=== PATIENT | male | born 1965 | race Caucasian/White ===

== ENCOUNTER → 2018-01-08 12:45 | Outpatient (CLI) | payer SELFPAY ==
[2018-01-08 13:02] LABS: International Normalized Ratio 2.8; Prothrombin Time (Protime)PT. 29.5 SECONDS (11.7-14.9)
== END ==
PROVIDERS: Family Provider Internal Medicine; PCP Internal Medicine; Visit Provider Internal Medicine
DX: I48.91 Unspecified atrial fibrillation (principal); R07.89 Other chest pain
CPT/HCPCS: 84484; 85610

== ENCOUNTER 2022-09-24 16:59 | Emergency (ER) | payer OTHER, SELFPAY ==
[2022-09-24 17:00] VITALS: BP 122/89; PULSE 61; RESP 16; TEMP 36.2; O2SAT 97; BMI 29.2
--- NOTE | 2022-09-24 17:30 | EKG12_ITS ---
Test Reason : PALP Blood Pressure : / mmHG Vent. Rate : 063 BPM Atrial Rate : 063 BPM P-R Int : 152 ms QRS Dur : 086 ms QT Int : 410 ms P-R-T Axes : 005 -31 015 degrees QTc Int : 419 ms Sinus rhythm with occasional Premature ventricular complexes Left axis deviation Abnormal ECG Confirmed by NEGRO CARDOZA, JOVI ([id number]), scientific publications editor RENETTA AZUL ([id number]) on 09/26/2022 1:46:44 PM Referred By: Confirmed By:JOVI TOM MD
--- NOTE | 2022-09-24 17:38 | RAD_ITS ---
INDICATION: chest pain EXAMINATION/TECHNIQUE: X-RAY - XR Chest 1 View COMPARISON: None. FINDINGS: LINES/DEVICES: None. LUNGS: No consolidation, edema or effusion. No pneumothorax. MEDIASTINUM AND CARDIOVASCULAR STRUCTURES: Cardiac silhouette not enlarged. Central airways and mediastinal contour are unremarkable. BONES AND SOFT TISSUES: Unremarkable. RAD/Chest 1 View (Portable) IMPRESSION: No radiographic evidence of acute cardiopulmonary disease. Electronically Signed: Maximiliano Belle MD at 17:57 EST ,
[2022-09-24 17:44] LABS: Absolute Lymphocyte Count 1.55 X10^3/uL (0.83-4.51); Absolute Neutrophil Count 3.9 X10^3/uL (2.0-7.7); Basophil# 0.03 X10^3/uL; Basophil% 0.5 % (0-1); Eosinophil# 0.22 X10^3/uL; Eosinophils% 3.6 % (0-5); Hematocrit 41.7 % (40-54); Hemoglobin 14.2 g/dL (13.0-16.5); Lymphocyte # 1.55 X10^3/ul (0.83-4.51); Lymphocyte % 25.6 % (19-41); Mean Corp Hgb Conc 34.1 g/dL (32-36); Mean Corpuscular Hgb 29.5 pg (27.0-32.0); Mean Corpuscular Volume 86.5 fL (80-94); Mean Platelet Vol. 11.4 fl (6.2-12.0); Monocyte# 0.31 X10^3/uL; Monocyte% 5.1 % (0-10); NRBC Flagged by Analyzer 0 % (0-5); Neutrophil # 3.93 X10^3/uL (2.7-7.7); Neutrophil % 64.9 % (47-70); Platelet Count 186 K/mm3 (150-450); RBC Distribution Width CV 12.5 % (11.6-14.6); RBC Distribution Width SD 39.4 fl (35.1-43.9); Red Blood Count 4.82 M/mm3 (4.6-6.2); White Blood Count 6.1 K/mm3 (4.4-11.0)
--- NOTE | 2022-09-24 17:58 | ED.VIS.CHEST ---
HPI History of Present Illness Chief Complaint: Palpitations Informant: patient and spouse/S.O. Onset/Context/Timing Onset: Today Activity at onset: sudden Timing: Intermittent Current Severity: Mild Maximum Severity: Mild Worsened By: Nothing Associated Symptoms: Positive for Dyspnea and Palpitations; Negative for Nausea, Vomiting, Diaphoresis, Cough, Fever, Lightheadedness or Acid Reflux Narrative Narrative: 58-year-old male history of A. fib since 2012. He is cardioverted at that time. Also has had a stroke in the past and a DVT in his leg he is on Coumadin. He is a known patent foramen ovale. Patient's had palpitations last couple weeks. Today had episode of seeing faster and he had some shortness of breath with it. No chest pain. No recent illness. Denies any nausea, vomiting or diarrhea. No fever or chills. No weight change or hair loss. He has had episodes like this before. He was on beta-blockers in the past he did not tolerate those well and they were stopped. Prior Similar Symptoms: Yes Recent Illness/Hospitalization: No CVD Risk Factors: Negative for Hypertension, Diabetes, Hypercholesterolemia or Smoking PE Risk Factors: Positive for Prior DVT or PE; Negative for Recent Travel/Surgery, Recent Immobilization, Cancer or OCP + Smoking + >/=35 TAD Risk Factors: Negative for Marfan's Syndrome or Hypertension [facility] Medical History Afib Stroke due to embolism Home Medications warfarin 1 mg tablet mg 09/24/22 [History Last Taken Unknown] warfarin 5 mg tablet mg 09/24/22 [History Last Taken Unknown] Allergy/AdvReac Type Severity Reaction Status Date / Time No Known Allergies Allergy Verified 09/24/22 17:00 Social History Smoking Status: Never smoker ROS ROS ED ROS Narrative Palpitations. Review of Systems ROS Unobtainable: Denies due to encephalopathy Constitutional Constitutional ED: Denies chills or fever(s) Eyes Eyes: Reports none ENT ENT ED: Denies ear pain Cardiovascular Cardiovascular: Reports as per HPI and palpitations; Denies chest pain Respiratory/Chest Respiratory/Chest: Reports dyspnea; Denies cough Gastrointestinal Gastrointestinal: Denies abdominal pain Genitourinary Genitourinary ED: Denies dysuria or hematuria Musculoskeletal Musculoskeletal: Denies arthralgias Integumentary Denies abscess or Abrasions Neurologic Neurologic: Denies headache(s) Psychiatric Psychiatric: Denies anxiety Endocrine Endocrinology: Denies cold intolerance Hematologic/Lymphatic Hematologic/Lymphatic: Denies easy bleeding Allergic/Immunologic Allergic/Immunologic ED: Denies mouth swelling or tongue swelling EXAM Physical Exam Narrative Exam Narrative: 57-year-old male no acute distress. Vital signs stable afebrile. Pulse ox 97% on room air. Pulse 61 sinus rhythm on the monitor occasional PVCs. H EENT exam normal. Neck nontender. No thyromegaly. Lungs clear to auscultation bilaterally. Heart regular rate and rhythm rate about 60. PVCs. Abdomen soft nontender. Moving all 4 extremities. Calves are nontender without edema or cords. Neurologic exam normal. Awake and alert. No focal motor deficits. Patient clinically looks well. Benign exam. Const Vital Signs: 09/24/22 17:00 09/24/22 18:03 Temperature 97.2 F L Temperature Source Temporal Pulse Rate 61 Respiratory Rate 16 Blood Pressure 122/89 H Blood Pressure Mean 100 Pulse Ox 97 Oxygen Delivery Method Room Air Room Air Positive well nourished and well developed; Negative for obese, cachectic, contractures or unkempt General Appearance ED: well developed and NAD; Negative for unkempt, cachectic, contractures or pallor Nutritional Appearance: Negative for cachectic or obese HEENT Reports moist mucous membranes; Denies dry mucous membranes normocephalic and atraumatic; Negative for trauma or tenderness Mouth ED: No dry mucous membranes Mouth: No dry mucous membranes Eyes PERRL and EOMs intact bilaterally General Eye ED: Negative for pale conjunctiva or scleral icterus Neck no lymphadenopathy, supple and no JVD General: Negative for tenderness Chest Wall inspection of chest normal and palpation of chest normal Resp normal respiratory effort and clear to auscultation bilaterally Effort and Inspection: Negative for respiratory distress Auscultation: Negative for rales, rhonchi or wheezes Cardio regular rate, regular rhythm, S1 normal heart sound, S2 normal heart sound and no murmurs Rate: other Other Details: Occasional PVCs on the monitor ; Negative for bradycardia or tachycardic Rhythm: Negative for abnormal rhythm Peripheral Pulses: pulses 2+ throughout GI normal to inspection, nondistended, normoactive bowel sounds, soft to palpation, non-tender, non-distended and no masses Auscultation: Negative for hyperactive bowel sounds Palpation: Negative for splenomegaly Back/Spine no CVA tenderness and no thoracic nor lumbar tenderness General Back: Negative for CVA tenderness Cervical Spine: Negative for cervical spine tenderness Extremity normal to inspection General Extremety ED: Negative for edema General Extremity: Negative for edema Neuro oriented x3 and CN's II-XII intact bilaterally Sensorium / Orientation: awake, alert, oriented to person, oriented to place and oriented to time; Negative for confused, lethargic or stuporous Motor Exam: strength 5/5 throughout Psych mental status grossly normal Appearance: Negative for unkempt Attitude: No agitated Mood & Affect: Negative for depressed, anxious or tearful Skin no rashes or lesions noted and no wounds General Skin Exam: Negative for jaundice or pallor Rashes: No rashes noted Trauma: Negative for abrasion or laceration MDM MDM MDM Narrative Medical decision making narrative: 57-year-old male history of A. fib. Has been having palpitations last 2 weeks. Today is sinus rhythm with PVCs. Will undergo cardiac work-up. He is on Coumadin level be checked. Exam is benign. I suspect to be a discharged home with outpatient follow-up. Repeat exam patient doing well at 6:24 PM. Work-up is negative. We discussed all his test results both the patient and his . He is not having any chest pain at all did need to repeat troponin. History and exam are consistent with PVCs. He has had a history of A. fib in the past but currently is not in A. fib and has had no signs of A. fib since he has been here. His Coumadin is therapeutic. He will be discharged home with outpatient follow-up with his primary care physician Dr. Kylie Mejia. Lab Data Attestation: I reviewed the patient's lab results. Lab results narrative: CBC shows white count 6. H&H 14 and 41. Platelets 186. Chest x-ray unremarkable. Chemistries normal gap of 5 normal being creatinine. Troponin is 4. Glucose is 100. Patient is on Coumadin and is therapeutic his INR of 2.3. Labs: Laboratory Results - last 24 hr 09/24/22 09/24/22 09/24/22 17:20 17:20 18:02 WBC 6.1 RBC 4.82 Hgb 14.2 Hct 41.7 MCV 86.5 MCH 29.5 MCHC 34.1 RDW Std Deviation 39.4 RDW Coeff of Meño 12.5 Plt Count 186 MPV 11.4 Immature Gran % (Auto) 0.300 Neut % (Auto) 64.9 Lymph % (Auto) 25.6 Patrick % (Auto) 5.1 Eos % (Auto) 3.6 Baso % (Auto) 0.5 Absolute Neuts (auto) 3.9 Absolute Lymphs (auto) 1.55 Nucleated RBC % 0 PT 24.5 H INR 2.3 Sodium 140 Potassium 4.0 Chloride 107 Carbon Dioxide 28.0 Anion Gap 5 BUN 17 Creatinine 0.97 Estim Creat Clear Calc 93.81 Est GFR (MDRD) Af Amer 102 Est GFR (MDRD) Non-Af 84 BUN/Creatinine Ratio 17.5 Glucose 100 Calcium 9.0 Troponin I High Sens 4 Radiography Chest X-Ray - ED: 1 View, Read by ED Physician, Read by Radiologist, Heart, Lungs, Mediastinum, Bony Structures, No Acute Disease and Chronic Changes Diagnostic Testing: Clinical Impression(s) from Imaging Studies Chest X-Ray 09/24/22 17:38 IMPRESSION: No radiographic evidence of acute cardiopulmonary disease. Electronically Signed: Maximiliano Belle MD at 17:57 EST Reading Location ID and State: [facility] / [place] , Service support , Chest x-ray, portable, single view interpreted both by myself and radiologist shows no acute abnormality. Normal cardiac silhouette. Normal mediastinum. No infiltrates. Normal lung kee. Rhythm Strip Rhythm Strip: Sinus Rhythm Rate: 63 Ectopy: None EKG Initial EKG: Attestation: I personally reviewed and interpreted this EKG as follows: Interpretation: Sinus Rhythm and No Acute Injury Pattern Comments: Normal sinus rhythm. Rate is 63. Occasional PVCs. Unchanged from prior EKG from November 2021. Prior: Unchanged Discharge Plan Triage Chief Complaint: Palpitations ED Provider: Socrates Severino Dx/Rx/DC Orders Clinical Impression: Heart palpitations, Premature ventricular contractions (PVCs) (VPCs), History of atrial fibrillation, Chronic anticoagulation Instructions: PVCs, ED Palpitations Prescriptions: No Action warfarin 5 mg tablet warfarin 1 mg tablet Primary Care Provider: Kylie Mejia Referrals: Kylie Mejia MD [Primary Care Provider] - As soon as possible Activity Restrictions/Additional Instructions: Your labs, EKG, chest x-ray are unremarkable. Your INR is therapeutic at 2.3. Your EKG just shows premature beats but no signs of atrial fibrillation. Continue your current meds. Follow-up with your primary care physician. Return if worse. Disposition Disposition: Home, Self Care
[2022-09-24 18:07] LABS: Anion Gap 5 (5-15); BUN 17 mg/dL (7-18); BUN/Creat Ratio 17.5 RATIO (10-20); Chloride 107 mmol/L (98-107); Creatinine, Serum 0.97 mg/dL (0.70-1.30); EST Glomerular Filtration Rate 84 mL/min (>60); Est Glom Filt Rate - Afr Amer 102 mL/min (>60); Estimated Creatinine Clearance 93.81 ml/min; Glucose 100 mg/dL (74-106); Sodium Level 140 mmol/L (136-145); Troponin-I HS (w/2H Reflex) 4 pg/mL (3.0-78.0)
[2022-09-24 18:16] LABS: International Normalized Ratio 2.3; Prothrombin Time (Protime)PT. 24.5 SECONDS (11.7-14.9)
[2022-09-24 18:34] VITALS: BP 110/89; PULSE 62; RESP 14; O2SAT 96
[2022-09-24 19:42] LABS: Reflex Troponin-HS? (from REC) Y
== END 2022-09-24 18:34 | disposition home or self-care (01) ==
PROVIDERS: Emergency Provider Emergency Medicine; PCP Internal Medicine; Visit Provider Emergency Medicine
DX: I49.3 Ventricular premature depolarization (principal); I48.91 Unspecified atrial fibrillation; Z79.01 Long term (current) use of anticoagulants; Z86.73 Personal history of transient ischemic attack (TIA), and cerebral infarction without residual deficits; Z86.718 Personal history of other venous thrombosis and embolism
CPT/HCPCS: 71045; 80048; 84484; 85025; 85610; 93005; 99285; A4216

== ENCOUNTER → 2023-03-01 | Outpatient (CLI) | payer SELFPAY, OTHER ==
--- NOTE | 2023-03-01 07:12 | CT_ITS ---
INDICATION: HYPOXEMIA EXAMINATION: CT CHEST WITHOUT CONTRAST - CT Chest W/O Contrast Injection TECHNIQUE: Helically acquired images were obtained of the chest. A radiation dose optimization technique was used for this scan. IV Contrast dosage and agent: None. COMPARISON: None. FINDINGS: LUNGS, PLEURA AND LARGE AIRWAYS: No masses, consolidation, or edema. No evidence of interstitial fibrosis. No pleural effusion or thickening. No pneumothorax. THYROID: No thyroid lesions. HEART AND PERICARDIUM: Heart size is normal. No pericardial effusion. CORONARY ARTERIES: Coronary artery calcification VESSELS: Thoracic aorta is not dilated. MEDIASTINUM AND WILBERTO: No mediastinal or hilar adenopathy. Esophagus is unremarkable. No hiatal hernia. UPPER ABDOMEN: No acute pathology. BONES: No suspicious lytic or blastic abnormality. CT/Chest without Contrast IMPRESSION: No definite acute or significant abnormality seen. Electronically Signed: Dennis Holley MD at 21:07 EDT ,
== END | disposition home or self-care (01) ==
LOC: CT 07:12
PROVIDERS: PCP Internal Medicine; Referring Provider Internal Medicine Pulmonary Disease; Visit Provider Internal Medicine Pulmonary Disease
DX: R09.02 Hypoxemia (principal)
CPT/HCPCS: 71250

== ENCOUNTER → 2023-04-13 | Outpatient (CLI) | payer SELFPAY, OTHER ==
--- NOTE | 2023-04-13 13:57 | ECHOD_ITS ---
Reason For Study: Hypoxemia Procedure This was a 2D Doppler, Color Flow transthoracic echocardiogram. Exam performed in department. Left Ventricle Normal LV size. Left ventricular systolic function is normal. The estimated ejection fraction is 55 %. Stage 1 diastolic dysfunction. No regional wall motion abnormalities noted. Right Ventricle Normal RV size. Normal systolic function. Tricuspid Valve Normal tricuspid valve. Mild tricuspid valve insufficiency. Pulmonary artery systolic pressure is 15 mmHg. Great Vessels Normal aortic root. The pulmonary is not well visualized. Normal inferior vena cava. Pericardium/Pleural No pericardial effusion. Medication Previous Positive Bubble on Echo and DIMPLE consistent with a PFO. MMode/2D Measurements & Calculations LVIDd: 5.7 cm IVSd: 1.0 cm Ao root diam: 4.0 cm LVIDs: 3.5 cm LVPWd: 1.1 cm LA dimension: 3.9 cm RVDd: 4.1 cm FS: 38.6 % LAV(MOD-bp): 61.9 ml LA A4 area: 19.9 cm2 RA A4 area: 16.4 cm2 LAV(MOD-bp) Indexed: 27.6 ml/m2 LAV(MOD-sp2): 61.9 ml LAV(MOD-sp4): 57.1 ml Time Measurements MV dec time: 0.25 sec Doppler Measurements & Calculations MV E max osmar: 48.3 cm/sec Lat Peak E' Osmar: 11.1 cm/sec Med Peak E' Osmar: 9.2 cm/sec MV A max osmar: 54.7 cm/sec E/E' lat: 4.3 E/E' med: 5.3 MV E/A: 0.88 MV V2 max: 58.7 cm/sec MV P1/2t max osmar: 53.9 cm/sec Ao V2 max: 117.0 cm/sec MV max P.4 mmHg MV P1/2t: 81.1 msec Ao max P.5 mmHg MV V2 mean: 30.9 cm/sec MV dec slope: 194.6 cm/sec2 Ao V2 mean: 83.1 cm/sec MV mean P.46 mmHg Ao mean P.2 mmHg MV V2 VTI: 19.9 cm MVA(P1/2t): 2.7 cm2 Ao V2 VTI: 29.7 cm AV (velocity ratio): 0.74 LV V1 max: 94.6 cm/sec MR max osmar: 289.7 cm/sec PA V2 max: 88.6 cm/sec LV V1 max P.6 mmHg MR max P.6 mmHg PA V2 mean: 51.1 cm/sec LV V1 mean P.0 mmHg LV V1 mean: 65.4 cm/sec LV V1 VTI: 22.1 cm TR max osmar: 171.4 cm/sec TR max P.8 mmHg ECHO/Echo Complete Interpretation Summary Normal LV size. Left ventricular systolic function is normal. The estimated ejection fraction is 55 %. Stage 1 diastolic dysfunction. Mild tricuspid valve insufficiency. Pulmonary artery systolic pressure is 15 mmHg. Ordering Physician: Orville Lopez V Referring Physician: Orville Lopez V Performed By: Praviz De Souza RCS
== END | disposition home or self-care (01) ==
PROVIDERS: PCP Internal Medicine; Referring Provider Internal Medicine Pulmonary Disease; Visit Provider Internal Medicine Pulmonary Disease
DX: I07.1 Rheumatic tricuspid insufficiency (principal); R09.02 Hypoxemia
CPT/HCPCS: 93306

== ENCOUNTER → 2025-04-03 | Outpatient (CLI) | payer SELFPAY, OTHER ==
--- NOTE | 2025-04-03 15:46 | MRI_ITS ---
PROCEDURE: LOWER EXT JOINT ONLY (ROUTINE) 04/03/2025 REASON FOR EXAM: BILATERAL KNEE PAIN TECHNIQUE: T1, T2, PD, LOWER EXT JOINT ONLY (ROUTINE) Multiplanar and multisequence images were obtained without IV contrast administration. COMPARISON: COMPARISON : None FINDINGS: Bone Marrow: Hardware is present consistent with prior ACL graft. Subcortical edema is present in the medial femoral condyle and medial tibial plateau. There is a 0.4 cm corticated osteochondral fragment in the lateral joint space. Cruciate ligaments: Residual ACL graft fibers are visible. There is edema and attenuation in the proximal and middle 3rd of the posterior cruciate, grade 2 sprain. Collateral ligaments: The medial collateral ligament appears intact. The lateral collateral ligament complex appears intact. Extensor mechanism: There is moderate distal quadriceps and distal patellar tendon tendinopathy without tear. Meniscus: There is a horizontal tear in the posterior horn of the lateral meniscus which extends to the tibial surface. There is a blunted appearance of the body of the medial meniscus which may be postsurgical, with a horizontal tear of the posterior horn extending to the femoral surface. Effusion: There is a moderate joint effusion. Plica are noted in the superior joint space. There is no significant Owen's cyst. 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 MRI/Lower Ext Joint Only (Routine) IMPRESSION: Hardware is present consistent with prior ACL graft. Subcortical edema is present in the medial femoral condyle and medial tibial pl ateau. There is a 0.4 cm corticated osteochondral fragment in the lateral joint space. Residual ACL graft fibers are visible. There is edema and attenuation in the proximal and middle 3rd of the posterior cruciate, grade 2 sprain. There is moderate distal quadriceps and distal patellar tendon tendinopathy wit hout tear. There is a horizontal tear in the posterior horn of the lateral meniscus which extends to the tibial surface. There is a blunted appearance of the body of the medial meniscus which may be p ostsurgical, with a horizontal tear of the posterior horn extending to the femoral surface. There is a moderate joint effusion. Plica are noted in the superior joint space. 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 Reading Location: [facility]
== END | disposition home or self-care (01) ==
LOC: MRI 15:44
PROVIDERS: PCP Internal Medicine; Referring Provider Internal Medicine; Visit Provider Internal Medicine
DX: M25.561 Pain in right knee (principal)
CPT/HCPCS: 73721